=== PATIENT | male | born 1965 | race Asian ===

== ENCOUNTER 2020-09-05 16:06 | Emergency (ER) | payer MEDICAID ==
[~2020-09-05] VITALS: Ht 170.2 cm; Wt 77.0 kg
[2020-09-05] MEDS ORDERED: IBUPROFEN 600MG TABLET PO ONE (17:15)
[2020-09-05] MEDS ORDERED: CEPHALEXIN 250MG CAPSULE PO ONE (17:15)
[2020-09-05 17:36] VITALS: BP 131/99
== END 2020-09-05 17:38 | disposition home or self-care (01) ==
LOC: ER 16:06
DX: L03.317 Cellulitis of buttock (principal); L02.31 Cutaneous abscess of buttock
CPT/HCPCS: 99283